=== PATIENT | male | born 2000 | race Caucasian/White ===

== ENCOUNTER 2022-10-09 11:44 | Emergency (ER) | payer BC ==
[~2022-10-09] VITALS: Ht 167.6 cm; Wt 59.0 kg
[2022-10-09 11:45] VITALS: BP_SYST 136
[2022-10-09] MEDS ORDERED: IBUP-1971 PO (13:37)
[2022-10-09 13:47] VITALS: BP_SYST 130
== END 2022-10-09 13:47 | disposition home or self-care (01) ==
LOC: SED 11:44
DX: S60.221A Contusion of right hand, initial encounter (principal); Z79.899 Other long term (current) drug therapy; W22.8XXA Striking against or struck by other objects, initial encounter; Y93.89 Activity, other specified; Y92.89 Other specified places as the place of occurrence of the external cause; Y99.8 Other external cause status
CPT/HCPCS: 99283